=== PATIENT | female | born 1945 | race Caucasian/White ===

== ENCOUNTER 2020-11-23 11:17 | Observation (INO) ==
[2020-11-23 11:41] LABS: Bilirubin,Urine Negative (Negative); Blood,Urine Large (Negative); Clarity,Urine Cloudy (Clear); Color,Urine Yellow (Yellow); Glucose,Urine (UA) Normal (Normal); Ketones,Urine 40 mg/dL (Negative); Leukocyte Esterase,Urine Moderate (Negative); Nitrite,Urine Positive (Negative); Protein,Urine 30 mg/dL (Neg-Trace); Specific Gravity,Urine 1.025 (1.010-1.025); Urobilinogen,Urine Normal (Normal)
[2020-11-23 11:48] LABS: Bacteria,Urine Many per hpf (None-Few); WBC,Urine TNTC per hpf (0-3)
[2020-11-23 11:50] LABS: Squamous Epithelial Cell,Urine Few per hpf (None-Few)
[2020-11-23 11:56] LABS: Basophils % 0.2 %; Eosinophils % 0.1 %; Hematocrit 39.5 % (35.3-44.9); Hemoglobin 12.6 g/dL (11.5-15.4); Immature Granulocytes % 0.3 % (0-4); Lymphocytes # 1.4 K/mcL (0.6-4.6); Mean Corpuscular HGB Conc 31.9 g/dL (31.6-35.5); Mean Corpuscular Hemoglobin 27.5 pg (28.0-33.3); Mean Corpuscular Volume 86.1 fL (83.0-100.0); Monocytes % 8.3 %; Neutrophils # 9.3 K/mcL (1.6-8.9); Platelet Count 225 K/mcL (140-400); Red Blood Count 4.59 M/mcL (3.82-4.97); Red Cell Distribution Width 13.6 % (11.5-14.5); Segmented Neutrophils % 79.1 %; White Blood Count 11.8 K/mcL (4.3-11.1)
[2020-11-23] MEDS ORDERED: cefTRIAXone 2,000 MG in 0.9 % Sodium Chloride Mini Bag 100 ML IVPB ONE (11:56)
[2020-11-23] MEDS ORDERED: 0.9 % Sodium Chloride 1,000 ML IVC SCH (12:00)
[2020-11-23 12:08] LABS: INR 1.4
[2020-11-23 12:13] LABS: Alanine Aminotransferase 16 Units/L (7-52); Albumin 4.1 g/dL (3.5-5.7); Albumin/Globulin Ratio 1.3 (1.1-2.2); Alkaline Phosphatase 72 Units/L (34-104); Aspartate Amino Transferase 35 Units/L (13-39); BUN/Creatinine Ratio 28 (6-26); Bilirubin,Total 0.8 mg/dL (0.3-1.0); Blood Urea Nitrogen 30 mg/dL (8-23); Calcium 9.3 mg/dL (8.6-10.3); Carbon Dioxide 27 mEq/L (23-29); Chloride 103 mEq/L (98-107); Globulin 3.1 g/dL (2.4-3.5); Glucose 122 mg/dL (70-105); Osmolality,Calculated 301 (280-300); Potassium 4.1 mEq/L (3.5-5.1); Sodium 142 mEq/L (136-145); Total Protein 7.2 g/dL (6.4-8.9); eGFR For African Americans 60 (> 60); eGFR For Non-African Americans 49 (> 60)
[2020-11-23 12:15] LABS: Troponin I < 0.03 ng/mL (< 0.04)
[2020-11-23] MEDS ORDERED: Ondansetron 4 MG/2 ML VIAL IVP PRN (13:15)
[2020-11-23] MEDS ORDERED: Naloxone 0.4 MG/ML INJ IVP PRN (13:15)
[2020-11-23] MEDS: Acetaminophen 325 MG TABLET PO PRN ×2 (16:23→23:49)
[2020-11-23] MEDS: carvediloL 6.25 MG TABLET PO SCH (16:23)
[2020-11-23] MEDS: methocarbamoL 500 MG TABLET PO SCH (21:03)
[2020-11-23] MEDS: Melatonin 3 MG TABLET PO PRN (23:49)
[2020-11-24] MEDS ORDERED: QUEtiapine Fumarate 25 MG TABLET PO ONE (02:15)
[2020-11-24] MEDS: *HR* Enoxaparin 40 MG/0.4 ML SYRINGE SQ SCH (05:02)
[2020-11-24 07:24] LABS: Hematocrit 32.8 % (35.3-44.9); Hemoglobin 10.4 g/dL (11.5-15.4); Mean Corpuscular HGB Conc 31.7 g/dL (31.6-35.5); Mean Corpuscular Hemoglobin 27.6 pg (28.0-33.3); Mean Platelet Volume 10.3 fL (9.4-12.4); Platelet Count 184 K/mcL (140-400); Red Blood Count 3.77 M/mcL (3.82-4.97); Red Cell Distribution Width 13.6 % (11.5-14.5); White Blood Count 9.2 K/mcL (4.3-11.1)
[2020-11-24 07:48] LABS: BUN/Creatinine Ratio 26 (6-26); Blood Urea Nitrogen 26 mg/dL (8-23); Calcium 8.4 mg/dL (8.6-10.3); Carbon Dioxide 27 mEq/L (23-29); Chloride 106 mEq/L (98-107); Glucose 98 mg/dL (70-105); Magnesium 1.7 mg/dL (1.6-2.6); Osmolality,Calculated 299 (280-300); Potassium 3.4 mEq/L (3.5-5.1); Sodium 142 mEq/L (136-145); eGFR For African Americans > 60 (> 60); eGFR For Non-African Americans 53 (> 60)
[2020-11-24] MEDS ORDERED: cefTRIAXone 2,000 MG in 0.9 % Sodium Chloride Mini Bag 100 ML IVPB SCH (09:00)
[2020-11-24] MEDS: methocarbamoL 500 MG TABLET PO SCH ×2 (09:21→22:07)
[2020-11-24] MEDS: cefTRIAXone 2,000 MG in Water for inj. (sterile) 20 ML IVP SCH (09:22)
[2020-11-24] MEDS: amLODIPine 5 MG TABLET PO SCH (09:22)
[2020-11-24] MEDS: carvediloL 6.25 MG TABLET PO SCH ×2 (09:22→16:18)
[2020-11-24] MEDS: Melatonin 3 MG TABLET PO PRN (22:09)
[2020-11-24] MEDS: Acetaminophen 325 MG TABLET PO PRN (22:22)
[2020-11-25] MEDS: *HR* Enoxaparin 40 MG/0.4 ML SYRINGE SQ SCH (06:27)
[2020-11-25 06:50] VITALS: BP 135/69
[2020-11-25 08:36] LABS: Basophils % 0.5 %; Eosinophils # 0.3 K/mcL (0.0-0.6); Eosinophils % 3.9 %; Hematocrit 33.8 % (35.3-44.9); Hemoglobin 10.6 g/dL (11.5-15.4); Immature Granulocytes % 0.5 % (0-4); Lymphocytes # 1.8 K/mcL (0.6-4.6); Lymphocytes % 24.7 %; Mean Corpuscular HGB Conc 31.4 g/dL (31.6-35.5); Mean Corpuscular Hemoglobin 27.4 pg (28.0-33.3); Mean Corpuscular Volume 87.3 fL (83.0-100.0); Mean Platelet Volume 10.3 fL (9.4-12.4); Monocytes # 0.9 K/mcL (0.0-1.3); Monocytes % 11.4 %; Neutrophils # 4.4 K/mcL (1.6-8.9); Platelet Count 204 K/mcL (140-400); Red Blood Count 3.87 M/mcL (3.82-4.97); Red Cell Distribution Width 13.7 % (11.5-14.5); White Blood Count 7.5 K/mcL (4.3-11.1)
[2020-11-25 08:54] LABS: BUN/Creatinine Ratio 26 (6-26); Blood Urea Nitrogen 28 mg/dL (8-23); Calcium 8.7 mg/dL (8.6-10.3); Carbon Dioxide 28 mEq/L (23-29); Chloride 106 mEq/L (98-107); Glucose 96 mg/dL (70-105); Osmolality,Calculated 299 (280-300); Sodium 142 mEq/L (136-145); eGFR For African Americans > 60 (> 60); eGFR For Non-African Americans 50 (> 60)
[2020-11-25] MEDS: cefTRIAXone 2,000 MG in Water for inj. (sterile) 20 ML IVP SCH (08:56)
[2020-11-25] MEDS: carvediloL 6.25 MG TABLET PO SCH ×2 (08:56→16:42)
[2020-11-25] MEDS: amLODIPine 5 MG TABLET PO SCH (08:56)
[2020-11-25] MEDS: methocarbamoL 500 MG TABLET PO SCH (08:56)
== END 2020-11-25 17:44 | disposition other institution (70) ==
LOC: INPPIK 11:17 → EMEROOPIK 11:17 → INPPIK 14:30
PROVIDERS: ADMIT Family Medicine; ATTEND Family Medicine

== ENCOUNTER 2020-11-25 17:50 | Inpatient (IN) ==
[2020-11-25] MEDS ORDERED: methocarbamoL 750 MG TABLET PO SCH (21:00)
[2020-11-25] MEDS: Cefdinir 300 MG CAPSULE PO SCH (21:54)
[2020-11-25] MEDS: methocarbamoL 500 MG TABLET PO SCH (21:57)
[2020-11-26 05:49] LABS: Basophils % 0.2 %; Eosinophils # 0.3 K/mcL (0.0-0.6); Eosinophils % 3.3 %; Hematocrit 35.2 % (35.3-44.9); Hemoglobin 11.3 g/dL (11.5-15.4); Immature Granulocytes % 0.7 % (0-4); Lymphocytes % 24.2 %; Mean Corpuscular HGB Conc 32.1 g/dL (31.6-35.5); Mean Corpuscular Hemoglobin 27.7 pg (28.0-33.3); Mean Corpuscular Volume 86.3 fL (83.0-100.0); Mean Platelet Volume 10.2 fL (9.4-12.4); Monocytes # 0.9 K/mcL (0.0-1.3); Monocytes % 10.1 %; Neutrophils # 5.2 K/mcL (1.6-8.9); Platelet Count 236 K/mcL (140-400); Red Blood Count 4.08 M/mcL (3.82-4.97); Red Cell Distribution Width 13.7 % (11.5-14.5); Segmented Neutrophils % 61.5 %; White Blood Count 8.4 K/mcL (4.3-11.1)
[2020-11-26 06:18] LABS: Activated Partial Thrombo Time 25.3 Seconds (26.0-36.0); INR 1.1; Prothrombin Time 12.4 Seconds (9.4-12.1)
[2020-11-26 06:21] LABS: eGFR For African Americans > 60 (> 60); eGFR For Non-African Americans 53 (> 60)
[2020-11-26] MEDS: methocarbamoL 500 MG TABLET PO SCH ×2 (08:25→19:45)
[2020-11-26] MEDS: Cefdinir 300 MG CAPSULE PO SCH ×2 (08:26→19:45)
[2020-11-26] MEDS: amLODIPine 5 MG TABLET PO SCH (08:26)
[2020-11-26] MEDS: carvediloL 6.25 MG TABLET PO SCH ×2 (08:26→17:20)
[2020-11-27] MEDS: *HR* Enoxaparin 40 MG/0.4 ML SYRINGE SQ SCH (05:29)
[2020-11-27] MEDS: amLODIPine 5 MG TABLET PO SCH (09:27)
[2020-11-27] MEDS: carvediloL 6.25 MG TABLET PO SCH (09:27)
[2020-11-27] MEDS: Cefdinir 300 MG CAPSULE PO SCH ×2 (09:27→19:53)
[2020-11-27] MEDS: methocarbamoL 500 MG TABLET PO SCH ×2 (09:27→19:54)
[2020-11-28] MEDS: *HR* Enoxaparin 40 MG/0.4 ML SYRINGE SQ SCH (05:38)
[2020-11-28] MEDS: amLODIPine 5 MG TABLET PO SCH (08:54)
[2020-11-28] MEDS: methocarbamoL 500 MG TABLET PO SCH ×2 (08:54→21:27)
[2020-11-28] MEDS: Cefdinir 300 MG CAPSULE PO SCH (08:54)
[2020-11-29] MEDS: *HR* Enoxaparin 40 MG/0.4 ML SYRINGE SQ SCH (05:59)
[2020-11-29] MEDS: amLODIPine 5 MG TABLET PO SCH (08:17)
[2020-11-29] MEDS: methocarbamoL 500 MG TABLET PO SCH ×2 (08:17→20:27)
[2020-11-30] MEDS: *HR* Enoxaparin 40 MG/0.4 ML SYRINGE SQ SCH (06:38)
[2020-11-30] MEDS: methocarbamoL 500 MG TABLET PO SCH ×2 (08:11→20:02)
[2020-11-30] MEDS: amLODIPine 5 MG TABLET PO SCH (08:11)
[2020-12-01] MEDS: *HR* Enoxaparin 40 MG/0.4 ML SYRINGE SQ SCH (05:47)
[2020-12-01] MEDS: methocarbamoL 500 MG TABLET PO SCH ×2 (08:30→20:08)
[2020-12-01] MEDS: amLODIPine 5 MG TABLET PO SCH (08:31)
[2020-12-01 14:03] LABS: Basophils % 0.6 %; Eosinophils % 1.5 %; Hematocrit 43.3 % (35.3-44.9); Hemoglobin 13.6 g/dL (11.5-15.4); Immature Granulocytes % 1.7 % (0-4); Lymphocytes # 2.8 K/mcL (0.6-4.6); Lymphocytes % 22.1 %; Mean Corpuscular HGB Conc 31.4 g/dL (31.6-35.5); Mean Corpuscular Hemoglobin 27.1 pg (28.0-33.3); Mean Corpuscular Volume 86.3 fL (83.0-100.0); Mean Platelet Volume 9.5 fL (9.4-12.4); Monocytes # 0.8 K/mcL (0.0-1.3); Monocytes % 6.5 %; Neutrophils # 8.6 K/mcL (1.6-8.9); Platelet Count 379 K/mcL (140-400); Red Blood Count 5.02 M/mcL (3.82-4.97); Red Cell Distribution Width 13.5 % (11.5-14.5); Segmented Neutrophils % 67.6 %; White Blood Count 12.7 K/mcL (4.3-11.1)
[2020-12-01 14:04] LABS: Basophils # 0.1 K/mcL (0.0-0.2); Eosinophils # 0.2 K/mcL (0.0-0.6)
[2020-12-01 14:21] LABS: Albumin 4.1 g/dL (3.5-5.7); Albumin/Globulin Ratio 1.3 (1.1-2.2); Bilirubin,Total 0.5 mg/dL (0.3-1.0); Calcium 9.9 mg/dL (8.6-10.3); Globulin 3.1 g/dL (2.4-3.5); Potassium 3.9 mEq/L (3.5-5.1); Total Protein 7.2 g/dL (6.4-8.9)
[2020-12-01] MEDS: Sennosides/Docusate Sodium TABLET PO SCH (20:08)
[2020-12-02] MEDS: Nystatin POWDER 30 GM BOTTLE TP SCH ×3 (00:51→21:51)
[2020-12-02] MEDS: *HR* Enoxaparin 40 MG/0.4 ML SYRINGE SQ SCH (05:42)
[2020-12-02] MEDS: Sennosides/Docusate Sodium TABLET PO SCH ×2 (07:55→21:50)
[2020-12-02] MEDS: amLODIPine 5 MG TABLET PO SCH (07:55)
[2020-12-02] MEDS: methocarbamoL 500 MG TABLET PO SCH ×2 (07:55→21:50)
[2020-12-02 15:30] LABS: Bilirubin,Urine Negative (Negative); Blood,Urine Moderate (Negative); Clarity,Urine Cloudy (Clear); Color,Urine Yellow (Yellow); Glucose,Urine (UA) Normal (Normal); Ketones,Urine Trace mg/dL (Negative); Leukocyte Esterase,Urine Moderate (Negative); Nitrite,Urine Negative (Negative); PH,Urine 5.5 pH Units (5.0-8.0); Protein,Urine Trace mg/dL (Neg-Trace); Urobilinogen,Urine Normal (Normal)
[2020-12-02 15:37] LABS: Squamous Epithelial Cell,Urine Many per hpf (None-Few); WBC,Urine 50-100 per hpf (0-3)
[2020-12-02 15:39] LABS: Bacteria,Urine Few per hpf (None-Few); RBC,Urine 15-30 per hpf (0-3)
[2020-12-03] MEDS: *HR* Enoxaparin 40 MG/0.4 ML SYRINGE SQ SCH (06:34)
[2020-12-03] MEDS ORDERED: Fluconazole 150 MG TABLET PO ONE (08:01)
[2020-12-03] MEDS: amLODIPine 5 MG TABLET PO SCH (09:27)
[2020-12-03] MEDS: methocarbamoL 500 MG TABLET PO SCH ×2 (09:27→20:29)
[2020-12-03] MEDS: Sennosides/Docusate Sodium TABLET PO SCH ×2 (09:27→20:29)
[2020-12-03] MEDS: Nystatin POWDER 30 GM BOTTLE TP SCH ×2 (09:29→20:40)
[2020-12-04] MEDS: *HR* Enoxaparin 40 MG/0.4 ML SYRINGE SQ SCH (05:06)
[2020-12-04] MEDS: methocarbamoL 500 MG TABLET PO SCH ×2 (08:14→20:03)
[2020-12-04] MEDS: Nystatin POWDER 30 GM BOTTLE TP SCH ×2 (08:15→20:04)
[2020-12-04] MEDS: Sennosides/Docusate Sodium TABLET PO SCH ×2 (08:15→20:02)
[2020-12-04] MEDS: amLODIPine 5 MG TABLET PO SCH (08:15)
[2020-12-05] MEDS: *HR* Enoxaparin 40 MG/0.4 ML SYRINGE SQ SCH (05:41)
[2020-12-05 07:11] LABS: Hemoglobin 11.5 g/dL (11.5-15.4); Mean Corpuscular HGB Conc 31.1 g/dL (31.6-35.5); Mean Corpuscular Hemoglobin 26.9 pg (28.0-33.3); Mean Corpuscular Volume 86.4 fL (83.0-100.0); Mean Platelet Volume 9.9 fL (9.4-12.4); Platelet Count 277 K/mcL (140-400); Red Blood Count 4.28 M/mcL (3.82-4.97); Red Cell Distribution Width 13.8 % (11.5-14.5); White Blood Count 8.9 K/mcL (4.3-11.1)
[2020-12-05 08:24] LABS: BUN/Creatinine Ratio 25 (6-26); Blood Urea Nitrogen 25 mg/dL (8-23); Calcium 8.9 mg/dL (8.6-10.3); Carbon Dioxide 30 mEq/L (23-29); Chloride 104 mEq/L (98-107); Glucose 100 mg/dL (70-105); Osmolality,Calculated 296 (280-300); Potassium 3.8 mEq/L (3.5-5.1); Sodium 141 mEq/L (136-145); eGFR For African Americans > 60 (> 60); eGFR For Non-African Americans 54 (> 60)
[2020-12-05] MEDS: amLODIPine 5 MG TABLET PO SCH (09:10)
[2020-12-05] MEDS: methocarbamoL 500 MG TABLET PO SCH ×2 (09:10→21:12)
[2020-12-05] MEDS: Sennosides/Docusate Sodium TABLET PO SCH ×2 (09:11→21:12)
[2020-12-05] MEDS: Nystatin POWDER 30 GM BOTTLE TP SCH (09:12)
[2020-12-06] MEDS: Nystatin POWDER 30 GM BOTTLE TP SCH ×3 (02:18→22:09)
[2020-12-06] MEDS: *HR* Enoxaparin 40 MG/0.4 ML SYRINGE SQ SCH (05:43)
[2020-12-06] MEDS: methocarbamoL 500 MG TABLET PO SCH ×2 (11:40→22:10)
[2020-12-06] MEDS: amLODIPine 5 MG TABLET PO SCH (11:40)
[2020-12-06] MEDS: Sennosides/Docusate Sodium TABLET PO SCH ×2 (11:40→22:10)
[2020-12-06] MEDS: Acetaminophen 325 MG TABLET PO PRN (17:13)
[2020-12-07] MEDS: *HR* Enoxaparin 40 MG/0.4 ML SYRINGE SQ SCH (05:12)
[2020-12-07] MEDS: methocarbamoL 500 MG TABLET PO SCH ×2 (08:33→21:31)
[2020-12-07] MEDS: Sennosides/Docusate Sodium TABLET PO SCH ×2 (08:33→21:31)
[2020-12-07] MEDS: amLODIPine 5 MG TABLET PO SCH (08:33)
[2020-12-07] MEDS: Acetaminophen 325 MG TABLET PO PRN (08:34)
[2020-12-07] MEDS: Nystatin POWDER 30 GM BOTTLE TP SCH ×2 (08:36→21:48)
[2020-12-08] MEDS: *HR* Enoxaparin 40 MG/0.4 ML SYRINGE SQ SCH (06:11)
[2020-12-08] MEDS: amLODIPine 5 MG TABLET PO SCH (08:20)
[2020-12-08] MEDS: methocarbamoL 500 MG TABLET PO SCH ×2 (08:20→21:12)
[2020-12-08] MEDS: Nystatin POWDER 30 GM BOTTLE TP SCH ×2 (08:20→21:20)
[2020-12-08] MEDS: Sennosides/Docusate Sodium TABLET PO SCH ×2 (08:21→21:11)
[2020-12-09] MEDS: *HR* Enoxaparin 40 MG/0.4 ML SYRINGE SQ SCH (05:52)
[2020-12-09] MEDS: Sennosides/Docusate Sodium TABLET PO SCH ×2 (08:24→21:35)
[2020-12-09] MEDS: Nystatin POWDER 30 GM BOTTLE TP SCH ×2 (08:24→21:36)
[2020-12-09] MEDS: amLODIPine 5 MG TABLET PO SCH (08:24)
[2020-12-09] MEDS: methocarbamoL 500 MG TABLET PO SCH ×2 (08:24→21:36)
[2020-12-10] MEDS: *HR* Enoxaparin 40 MG/0.4 ML SYRINGE SQ SCH (05:34)
[2020-12-10 05:51] LABS: Basophils % 0.4 %; Eosinophils # 0.1 K/mcL (0.0-0.6); Hematocrit 35.9 % (35.3-44.9); Hemoglobin 11.3 g/dL (11.5-15.4); Immature Granulocytes % 0.6 % (0-4); Lymphocytes % 27.9 %; Mean Corpuscular HGB Conc 31.5 g/dL (31.6-35.5); Mean Corpuscular Hemoglobin 27.2 pg (28.0-33.3); Mean Corpuscular Volume 86.5 fL (83.0-100.0); Mean Platelet Volume 10.1 fL (9.4-12.4); Monocytes # 0.6 K/mcL (0.0-1.3); Monocytes % 8.9 %; Neutrophils # 4.4 K/mcL (1.6-8.9); Platelet Count 273 K/mcL (140-400); Red Blood Count 4.15 M/mcL (3.82-4.97); Red Cell Distribution Width 13.8 % (11.5-14.5); Segmented Neutrophils % 61.2 %; White Blood Count 7.2 K/mcL (4.3-11.1)
[2020-12-10 06:16] LABS: BUN/Creatinine Ratio 30 (6-26); Blood Urea Nitrogen 27 mg/dL (8-23); Calcium 8.9 mg/dL (8.6-10.3); Carbon Dioxide 26 mEq/L (23-29); Chloride 104 mEq/L (98-107); Glucose 97 mg/dL (70-105); Osmolality,Calculated 295 (280-300); Potassium 3.8 mEq/L (3.5-5.1); Sodium 140 mEq/L (136-145); eGFR For African Americans > 60 (> 60); eGFR For Non-African Americans > 60 (> 60)
[2020-12-10] MEDS: methocarbamoL 500 MG TABLET PO SCH ×2 (09:41→20:03)
[2020-12-10] MEDS: amLODIPine 5 MG TABLET PO SCH (09:41)
[2020-12-10] MEDS: Sennosides/Docusate Sodium TABLET PO SCH ×2 (09:41→20:03)
[2020-12-10] MEDS: Acetaminophen 325 MG TABLET PO PRN (09:41)
[2020-12-10] MEDS: Nystatin POWDER 30 GM BOTTLE TP SCH ×2 (09:47→20:06)
[2020-12-11] MEDS: *HR* Enoxaparin 40 MG/0.4 ML SYRINGE SQ SCH (05:17)
[2020-12-11] MEDS: Sennosides/Docusate Sodium TABLET PO SCH ×2 (08:12→21:24)
[2020-12-11] MEDS: amLODIPine 5 MG TABLET PO SCH (08:13)
[2020-12-11] MEDS: methocarbamoL 500 MG TABLET PO SCH ×2 (08:13→21:24)
[2020-12-11] MEDS: Nystatin POWDER 30 GM BOTTLE TP SCH ×2 (10:51→21:24)
[2020-12-12] MEDS: *HR* Enoxaparin 40 MG/0.4 ML SYRINGE SQ SCH (05:35)
[2020-12-12] MEDS: Nystatin POWDER 30 GM BOTTLE TP SCH ×2 (09:41→20:51)
[2020-12-12] MEDS: Sennosides/Docusate Sodium TABLET PO SCH ×2 (09:41→20:51)
[2020-12-12] MEDS: amLODIPine 5 MG TABLET PO SCH (09:41)
[2020-12-12] MEDS: methocarbamoL 500 MG TABLET PO SCH ×2 (09:41→20:51)
[2020-12-13] MEDS: *HR* Enoxaparin 40 MG/0.4 ML SYRINGE SQ SCH (05:50)
[2020-12-13 07:11] VITALS: BP 154/72
[2020-12-13] MEDS: methocarbamoL 500 MG TABLET PO SCH (09:15)
[2020-12-13] MEDS: Sennosides/Docusate Sodium TABLET PO SCH (09:16)
[2020-12-13] MEDS: Nystatin POWDER 30 GM BOTTLE TP SCH (09:16)
[2020-12-13] MEDS: amLODIPine 5 MG TABLET PO SCH (09:16)
== END 2020-12-13 12:40 | disposition home health service (06) | DRG 759 ==
LOC: INPPIK 19:01
PROVIDERS: ADMIT Family Medicine; ATTEND Family Medicine

== ENCOUNTER 2021-01-12 18:36 | Observation (INO) ==
[2021-01-12 19:10] LABS: Bilirubin,Urine Small (Negative); Blood,Urine Large (Negative); Clarity,Urine Cloudy (Clear); Color,Urine Yellow (Yellow); Glucose,Urine (UA) Normal (Normal); Ketones,Urine Negative (Negative); Leukocyte Esterase,Urine Trace (Negative); Nitrite,Urine Negative (Negative); Protein,Urine 30 mg/dL (Neg-Trace); Specific Gravity,Urine 1.025 (1.010-1.025); Urobilinogen,Urine Normal (Normal)
[2021-01-12 19:17] LABS: Bacteria,Urine Few per hpf (None-Few); RBC,Urine 50-100 per hpf (0-3); Squamous Epithelial Cell,Urine Moderate per hpf (None-Few); WBC,Urine 15-30 per hpf (0-3)
[2021-01-12 20:07] LABS: Basophils % 0.1 %; Hematocrit 33.4 % (35.3-44.9); Hemoglobin 10.8 g/dL (11.5-15.4); Immature Granulocytes % 0.6 % (0-4); Lymphocytes # 1.4 K/mcL (0.6-4.6); Lymphocytes % 11.6 %; Mean Corpuscular HGB Conc 32.3 g/dL (31.6-35.5); Mean Corpuscular Hemoglobin 26.7 pg (28.0-33.3); Mean Corpuscular Volume 82.5 fL (83.0-100.0); Mean Platelet Volume 9.8 fL (9.4-12.4); Monocytes # 1.3 K/mcL (0.0-1.3); Monocytes % 10.8 %; Platelet Count 217 K/mcL (140-400); Red Blood Count 4.05 M/mcL (3.82-4.97); Red Cell Distribution Width 14.7 % (11.5-14.5); Segmented Neutrophils % 76.9 %; White Blood Count 11.7 K/mcL (4.3-11.1)
[2021-01-12 20:23] LABS: BUN/Creatinine Ratio 31 (6-26); Blood Urea Nitrogen 43 mg/dL (8-23); Carbon Dioxide 26 mEq/L (23-29); Chloride 100 mEq/L (98-107); Glucose 142 mg/dL (70-105); Osmolality,Calculated 295 (280-300); Potassium 3.8 mEq/L (3.5-5.1); Sodium 136 mEq/L (136-145); eGFR For African Americans 45 (> 60); eGFR For Non-African Americans 37 (> 60)
[2021-01-12 20:28] LABS: Troponin I < 0.03 ng/mL (< 0.04)
[2021-01-12] MEDS ORDERED: Naloxone 0.4 MG/ML INJ IVP PRN (22:45)
[2021-01-12] MEDS: 0.9 % Sodium Chloride 1,000 ML IVC SCH (23:20)
[2021-01-12] MEDS: Acetaminophen 325 MG TABLET PO PRN (23:21)
[2021-01-13] MEDS: Nystatin POWDER 30 GM BOTTLE TP SCH ×3 (01:20→20:10)
[2021-01-13] MEDS: cefTRIAXone 1,000 MG in 0.9 % Sodium Chloride Mini Bag 100 ML IVPB SCH (09:12)
[2021-01-13] MEDS: Acetaminophen 325 MG TABLET PO PRN ×2 (09:14→17:17)
[2021-01-13] MEDS: carvediloL 6.25 MG TABLET PO SCH ×2 (09:15→17:08)
[2021-01-13] MEDS: amLODIPine 5 MG TABLET PO SCH (09:15)
[2021-01-13] MEDS: 0.9 % Sodium Chloride 1,000 ML IVC SCH (12:58)
[2021-01-14 05:40] LABS: Basophils % 0.2 %; Hemoglobin 9.8 g/dL (11.5-15.4); Immature Granulocytes % 0.6 % (0-4); Lymphocytes % 24.1 %; Mean Corpuscular HGB Conc 31.6 g/dL (31.6-35.5); Mean Corpuscular Hemoglobin 26.9 pg (28.0-33.3); Mean Corpuscular Volume 85.2 fL (83.0-100.0); Mean Platelet Volume 10.6 fL (9.4-12.4); Monocytes # 0.8 K/mcL (0.0-1.3); Neutrophils # 5.4 K/mcL (1.6-8.9); Platelet Count 221 K/mcL (140-400); Red Blood Count 3.64 M/mcL (3.82-4.97); Red Cell Distribution Width 14.8 % (11.5-14.5); Segmented Neutrophils % 65.1 %; White Blood Count 8.3 K/mcL (4.3-11.1)
[2021-01-14 06:06] LABS: BUN/Creatinine Ratio 33 (6-26); Blood Urea Nitrogen 33 mg/dL (8-23); Carbon Dioxide 27 mEq/L (23-29); Chloride 107 mEq/L (98-107); Glucose 109 mg/dL (70-105); Osmolality,Calculated 300 (280-300); Potassium 3.6 mEq/L (3.5-5.1); Sodium 141 mEq/L (136-145); eGFR For African Americans > 60 (> 60); eGFR For Non-African Americans 54 (> 60)
[2021-01-14] MEDS: amLODIPine 5 MG TABLET PO SCH (09:16)
[2021-01-14] MEDS: carvediloL 6.25 MG TABLET PO SCH ×2 (09:16→16:40)
[2021-01-14] MEDS: cefTRIAXone 1,000 MG in 0.9 % Sodium Chloride Mini Bag 100 ML IVPB SCH (09:17)
[2021-01-14] MEDS: Acetaminophen 325 MG TABLET PO PRN (09:21)
[2021-01-14] MEDS: Nystatin POWDER 30 GM BOTTLE TP SCH ×2 (09:23→20:55)
[2021-01-15] MEDS: Acetaminophen 325 MG TABLET PO PRN ×2 (01:25→16:47)
[2021-01-15 07:18] VITALS: BP 145/74
[2021-01-15] MEDS: carvediloL 6.25 MG TABLET PO SCH ×2 (08:28→16:45)
[2021-01-15] MEDS: amLODIPine 5 MG TABLET PO SCH (08:28)
[2021-01-15] MEDS: Nystatin POWDER 30 GM BOTTLE TP SCH (08:29)
[2021-01-15] MEDS: cefTRIAXone 1,000 MG in 0.9 % Sodium Chloride Mini Bag 100 ML IVPB SCH ×2 (08:29→08:37)
== END 2021-01-15 17:38 | disposition other institution (70) ==
LOC: INPPIK 18:36 → EMEROOPIK 18:36 → INPPIK 22:30
PROVIDERS: ADMIT Family Medicine; ATTEND Family Medicine

== ENCOUNTER 2021-01-15 14:29 | Inpatient (IN) ==
[2021-01-15] MEDS: carvediloL 6.25 MG TABLET PO SCH (18:12)
[2021-01-15] MEDS: cephALEXin 500 MG CAPSULE PO SCH ×2 (18:20→20:50)
[2021-01-15] MEDS: QUEtiapine Fumarate 25 MG TABLET PO SCH (20:50)
[2021-01-16] MEDS: *HR* Enoxaparin 40 MG/0.4 ML SYRINGE SQ SCH (04:54)
[2021-01-16 07:31] LABS: Basophils % 0.3 %; Eosinophils # 0.1 K/mcL (0.0-0.6); Eosinophils % 1.7 %; Hematocrit 32.8 % (35.3-44.9); Hemoglobin 10.3 g/dL (11.5-15.4); Immature Granulocytes % 0.6 % (0-4); Lymphocytes % 28.9 %; Mean Corpuscular HGB Conc 31.4 g/dL (31.6-35.5); Mean Corpuscular Hemoglobin 26.3 pg (28.0-33.3); Mean Corpuscular Volume 83.9 fL (83.0-100.0); Mean Platelet Volume 9.9 fL (9.4-12.4); Monocytes # 0.7 K/mcL (0.0-1.3); Monocytes % 9.3 %; Neutrophils # 4.2 K/mcL (1.6-8.9); Platelet Count 274 K/mcL (140-400); Red Blood Count 3.91 M/mcL (3.82-4.97); Red Cell Distribution Width 14.8 % (11.5-14.5); Segmented Neutrophils % 59.2 %
[2021-01-16 07:47] LABS: BUN/Creatinine Ratio 22 (6-26); Blood Urea Nitrogen 17 mg/dL (8-23); Calcium 8.5 mg/dL (8.6-10.3); Carbon Dioxide 29 mEq/L (23-29); Chloride 106 mEq/L (98-107); Glucose 90 mg/dL (70-105); Osmolality,Calculated 297 (280-300); Potassium 3.4 mEq/L (3.5-5.1); Sodium 143 mEq/L (136-145); eGFR For African Americans > 60 (> 60); eGFR For Non-African Americans > 60 (> 60)
[2021-01-16] MEDS: carvediloL 6.25 MG TABLET PO SCH ×2 (08:09→17:17)
[2021-01-16] MEDS: cephALEXin 500 MG CAPSULE PO SCH ×3 (08:11→19:35)
[2021-01-16] MEDS: amLODIPine 5 MG TABLET PO SCH (08:11)
[2021-01-16] MEDS: QUEtiapine Fumarate 25 MG TABLET PO SCH (19:35)
[2021-01-17] MEDS: *HR* Enoxaparin 40 MG/0.4 ML SYRINGE SQ SCH (05:19)
[2021-01-17] MEDS: carvediloL 6.25 MG TABLET PO SCH ×2 (07:17→17:05)
[2021-01-17] MEDS: amLODIPine 5 MG TABLET PO SCH (09:04)
[2021-01-17] MEDS: cephALEXin 500 MG CAPSULE PO SCH ×2 (09:05→15:13)
[2021-01-17] MEDS: Acetaminophen 325 MG TABLET PO PRN (09:33)
[2021-01-17] MEDS: QUEtiapine Fumarate 25 MG TABLET PO SCH (19:44)
[2021-01-18] MEDS: *HR* Enoxaparin 40 MG/0.4 ML SYRINGE SQ SCH (05:17)
[2021-01-18] MEDS: carvediloL 6.25 MG TABLET PO SCH ×2 (07:57→17:04)
[2021-01-18] MEDS: amLODIPine 5 MG TABLET PO SCH (07:57)
[2021-01-18] MEDS: Lactobacillus 1 EACH CAP.SPRINK PO SCH ×2 (11:59→20:52)
[2021-01-18] MEDS: QUEtiapine Fumarate 25 MG TABLET PO SCH (20:52)
[2021-01-19] MEDS: *HR* Enoxaparin 40 MG/0.4 ML SYRINGE SQ SCH (06:14)
[2021-01-19] MEDS: Acetaminophen 325 MG TABLET PO PRN (08:32)
[2021-01-19] MEDS: Lactobacillus 1 EACH CAP.SPRINK PO SCH ×2 (08:33→19:29)
[2021-01-19] MEDS: carvediloL 6.25 MG TABLET PO SCH ×2 (08:33→16:06)
[2021-01-19] MEDS: amLODIPine 5 MG TABLET PO SCH (08:33)
[2021-01-19] MEDS ORDERED: Diphenoxylate/Atropine 1 TAB TABLET PO PRN (15:28)
[2021-01-19] MEDS: QUEtiapine Fumarate 25 MG TABLET PO SCH (19:29)
[2021-01-20] MEDS: *HR* Enoxaparin 40 MG/0.4 ML SYRINGE SQ SCH (05:28)
[2021-01-20] MEDS: carvediloL 6.25 MG TABLET PO SCH ×2 (08:08→17:02)
[2021-01-20] MEDS: amLODIPine 5 MG TABLET PO SCH (08:08)
[2021-01-20] MEDS: Lactobacillus 1 EACH CAP.SPRINK PO SCH ×2 (08:08→20:40)
[2021-01-20] MEDS: Acetaminophen 325 MG TABLET PO PRN (08:08)
[2021-01-20] MEDS: QUEtiapine Fumarate 25 MG TABLET PO SCH (20:40)
[2021-01-21] MEDS: *HR* Enoxaparin 40 MG/0.4 ML SYRINGE SQ SCH (05:19)
[2021-01-21 07:33] LABS: Basophils # 0.1 K/mcL (0.0-0.2); Basophils % 0.7 %; Hematocrit 32.6 % (35.3-44.9); Hemoglobin 10.3 g/dL (11.5-15.4); Immature Granulocytes % 1.9 % (0-4); Lymphocytes # 2.3 K/mcL (0.6-4.6); Lymphocytes % 30.7 %; Mean Corpuscular HGB Conc 31.6 g/dL (31.6-35.5); Mean Corpuscular Hemoglobin 26.3 pg (28.0-33.3); Mean Corpuscular Volume 83.2 fL (83.0-100.0); Mean Platelet Volume 9.8 fL (9.4-12.4); Monocytes # 0.8 K/mcL (0.0-1.3); Monocytes % 11.1 %; Neutrophils # 4.1 K/mcL (1.6-8.9); Platelet Count 310 K/mcL (140-400); Red Blood Count 3.92 M/mcL (3.82-4.97); Red Cell Distribution Width 14.6 % (11.5-14.5); Segmented Neutrophils % 55.6 %; White Blood Count 7.4 K/mcL (4.3-11.1)
[2021-01-21 07:54] LABS: BUN/Creatinine Ratio 23 (6-26); Blood Urea Nitrogen 19 mg/dL (8-23); Calcium 8.6 mg/dL (8.6-10.3); Carbon Dioxide 31 mEq/L (23-29); Chloride 102 mEq/L (98-107); Glucose 94 mg/dL (70-105); Osmolality,Calculated 294 (280-300); Potassium 3.3 mEq/L (3.5-5.1); Sodium 141 mEq/L (136-145); eGFR For African Americans > 60 (> 60); eGFR For Non-African Americans > 60 (> 60)
[2021-01-21] MEDS: Lactobacillus 1 EACH CAP.SPRINK PO SCH ×2 (08:43→20:13)
[2021-01-21] MEDS: Acetaminophen 325 MG TABLET PO PRN ×2 (08:43→20:13)
[2021-01-21] MEDS: carvediloL 6.25 MG TABLET PO SCH ×2 (08:43→16:14)
[2021-01-21] MEDS: amLODIPine 5 MG TABLET PO SCH (08:43)
[2021-01-21] MEDS: QUEtiapine Fumarate 25 MG TABLET PO SCH (20:13)
[2021-01-22] MEDS: *HR* Enoxaparin 40 MG/0.4 ML SYRINGE SQ SCH (05:39)
[2021-01-22] MEDS: carvediloL 6.25 MG TABLET PO SCH ×2 (08:15→17:06)
[2021-01-22] MEDS: Lactobacillus 1 EACH CAP.SPRINK PO SCH ×2 (08:15→20:15)
[2021-01-22] MEDS: amLODIPine 5 MG TABLET PO SCH (08:15)
[2021-01-22] MEDS: QUEtiapine Fumarate 25 MG TABLET PO SCH (20:15)
[2021-01-22] MEDS: Acetaminophen 325 MG TABLET PO PRN (20:15)
[2021-01-23] MEDS: *HR* Enoxaparin 40 MG/0.4 ML SYRINGE SQ SCH (05:51)
[2021-01-23] MEDS: carvediloL 6.25 MG TABLET PO SCH ×2 (08:11→16:09)
[2021-01-23] MEDS: Lactobacillus 1 EACH CAP.SPRINK PO SCH ×2 (08:11→20:04)
[2021-01-23] MEDS: amLODIPine 5 MG TABLET PO SCH (08:11)
[2021-01-23] MEDS: Acetaminophen 325 MG TABLET PO PRN (08:11)
[2021-01-23] MEDS: QUEtiapine Fumarate 25 MG TABLET PO SCH (20:04)
[2021-01-24] MEDS: *HR* Enoxaparin 40 MG/0.4 ML SYRINGE SQ SCH (06:09)
[2021-01-24] MEDS: Acetaminophen 325 MG TABLET PO PRN (08:01)
[2021-01-24] MEDS: amLODIPine 5 MG TABLET PO SCH (08:02)
[2021-01-24] MEDS: carvediloL 6.25 MG TABLET PO SCH ×2 (08:02→16:30)
[2021-01-24] MEDS: Lactobacillus 1 EACH CAP.SPRINK PO SCH ×2 (08:02→19:40)
[2021-01-24] MEDS: QUEtiapine Fumarate 25 MG TABLET PO SCH (19:40)
[2021-01-25] MEDS: *HR* Enoxaparin 40 MG/0.4 ML SYRINGE SQ SCH (04:54)
[2021-01-25] MEDS: carvediloL 6.25 MG TABLET PO SCH ×2 (08:03→16:19)
[2021-01-25] MEDS: amLODIPine 5 MG TABLET PO SCH (08:03)
[2021-01-25] MEDS: Lactobacillus 1 EACH CAP.SPRINK PO SCH ×2 (08:04→20:12)
[2021-01-25 08:06] LABS: Basophils # 0.1 K/mcL (0.0-0.2); Basophils % 0.6 %; Hematocrit 35.4 % (35.3-44.9); Hemoglobin 10.9 g/dL (11.5-15.4); Immature Granulocytes % 1.5 % (0-4); Lymphocytes # 3.7 K/mcL (0.6-4.6); Lymphocytes % 42.4 %; Mean Corpuscular HGB Conc 30.8 g/dL (31.6-35.5); Mean Corpuscular Hemoglobin 25.9 pg (28.0-33.3); Mean Corpuscular Volume 84.1 fL (83.0-100.0); Mean Platelet Volume 9.6 fL (9.4-12.4); Monocytes # 0.5 K/mcL (0.0-1.3); Monocytes % 6.2 %; Neutrophils # 4.3 K/mcL (1.6-8.9); Platelet Count 365 K/mcL (140-400); Red Blood Count 4.21 M/mcL (3.82-4.97); Red Cell Distribution Width 14.9 % (11.5-14.5); Segmented Neutrophils % 49.3 %; White Blood Count 8.7 K/mcL (4.3-11.1)
[2021-01-25 08:28] LABS: BUN/Creatinine Ratio 23 (6-26); Blood Urea Nitrogen 23 mg/dL (8-23); Calcium 8.8 mg/dL (8.6-10.3); Carbon Dioxide 31 mEq/L (23-29); Chloride 102 mEq/L (98-107); Glucose 97 mg/dL (70-105); Osmolality,Calculated 296 (280-300); Potassium 3.9 mEq/L (3.5-5.1); Sodium 141 mEq/L (136-145); eGFR For African Americans > 60 (> 60); eGFR For Non-African Americans 53 (> 60)
[2021-01-25] MEDS: QUEtiapine Fumarate 25 MG TABLET PO SCH (20:12)
[2021-01-25] MEDS: Acetaminophen 325 MG TABLET PO PRN (22:03)
[2021-01-26] MEDS: *HR* Enoxaparin 40 MG/0.4 ML SYRINGE SQ SCH (05:11)
[2021-01-26] MEDS: carvediloL 6.25 MG TABLET PO SCH ×2 (09:13→16:50)
[2021-01-26] MEDS: Lactobacillus 1 EACH CAP.SPRINK PO SCH ×2 (09:13→21:06)
[2021-01-26] MEDS: amLODIPine 5 MG TABLET PO SCH (09:13)
[2021-01-26] MEDS: QUEtiapine Fumarate 25 MG TABLET PO SCH (21:06)
[2021-01-27] MEDS: *HR* Enoxaparin 40 MG/0.4 ML SYRINGE SQ SCH (05:46)
[2021-01-27] MEDS: Lactobacillus 1 EACH CAP.SPRINK PO SCH ×2 (07:58→21:03)
[2021-01-27] MEDS: amLODIPine 5 MG TABLET PO SCH (07:59)
[2021-01-27] MEDS: carvediloL 6.25 MG TABLET PO SCH ×2 (08:00→17:01)
[2021-01-27] MEDS: QUEtiapine Fumarate 25 MG TABLET PO SCH (21:03)
[2021-01-28] MEDS: *HR* Enoxaparin 40 MG/0.4 ML SYRINGE SQ SCH (06:18)
[2021-01-28] MEDS: Lactobacillus 1 EACH CAP.SPRINK PO SCH ×2 (09:55→21:47)
[2021-01-28] MEDS: carvediloL 6.25 MG TABLET PO SCH ×2 (09:55→17:23)
[2021-01-28] MEDS: amLODIPine 5 MG TABLET PO SCH (09:56)
[2021-01-28] MEDS: Acetaminophen 325 MG TABLET PO PRN (13:06)
[2021-01-28] MEDS: QUEtiapine Fumarate 25 MG TABLET PO SCH (21:46)
[2021-01-29] MEDS: *HR* Enoxaparin 40 MG/0.4 ML SYRINGE SQ SCH (05:27)
[2021-01-29 06:32] VITALS: BP 120/55
[2021-01-29] MEDS: Lactobacillus 1 EACH CAP.SPRINK PO SCH (07:25)
[2021-01-29] MEDS: amLODIPine 5 MG TABLET PO SCH (07:25)
[2021-01-29] MEDS: carvediloL 6.25 MG TABLET PO SCH (07:25)
[2021-01-29] MEDS: Acetaminophen 325 MG TABLET PO PRN (12:16)
== END 2021-01-29 12:20 | disposition home health service (06) | DRG 945 ==
LOC: INPPIK 17:41
PROVIDERS: ADMIT Family Medicine; ATTEND Family Medicine